=== PATIENT | female | born 1995 | race Caucasian/White ===

== ENCOUNTER 2016-06-17 18:33 | Emergency (ER) | payer OTHER ==
[2016-06-17 19:53] VITALS: BP 125/78; PULSE 89; TEMP 98.1; BMI 26.5
[2016-06-17 21:10] LABS: AMORPHOUS 1+; LEUKOCYTES/URINE TRACE (NEGATIVE); NITRITE/URINE NEG (NEGATIVE); URINE OCCULT BLOOD 1+ (NEG/TRACE)
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
== END 2016-06-17 21:56 | disposition home or self-care (01) ==
LOC: EDMC 18:33
DX: S20.219A Contusion of unspecified front wall of thorax, initial encounter (principal); V49.50XA Passenger injured in collision with unspecified motor vehicles in traffic accident, initial encounter; F17.200 Nicotine dependence, unspecified, uncomplicated
CPT/HCPCS: 71111; 81001; 81025; 99283

== ENCOUNTER 2016-06-21 21:29 | Emergency (ER) | payer OTHER ==
[2016-06-21 21:49] VITALS: TEMP 98.6; BMI 27.8
[2016-06-21 22:31] VITALS: BP 140/80; PULSE 97
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
== END 2016-06-21 22:45 | disposition home or self-care (01) ==
LOC: EDMC 21:29
DX: M25.511 Pain in right shoulder (principal); V49.50XA Passenger injured in collision with unspecified motor vehicles in traffic accident, initial encounter
CPT/HCPCS: 99283